=== PATIENT | female | born 1960 | race Caucasian/White ===

== ENCOUNTER 2018-02-19 00:17 | Emergency (ER) | payer OTHER ==
[~2018-02-19] VITALS: Ht 154.9 cm; Wt 62.6 kg
[~2018-02-19 00:17] MED LIST: CARAFATE SU1 G/10 ML PO; CIPRO500 MG PO; FLAGYL500MG PO; IBUPROFEN800 MG PO; INTESTINEX1 CA1 PO; MEDROL4 MG PO; ORPH100T PO; PROTONIX40 MG PO; ULTRACET PO; ZANTAC150 MG PO
== END 2018-02-19 15:33 | disposition home or self-care (01) ==
LOC: ER 00:17
DX: M79.661 Pain in right lower leg (principal)

== ENCOUNTER 2018-06-05 13:03 | Emergency (ER) | payer OTHER ==
[~2018-06-05] VITALS: Ht 154.9 cm; Wt 63.5 kg
[2018-06-05] MEDS ORDERED: KETO10TA2 PO (15:19)
[2018-06-05] MEDS ORDERED: NORFLEX100MG PO (15:19)
== END 2018-06-05 15:43 | disposition home or self-care (01) ==
LOC: ER 13:03
DX: M54.5 Low back pain (principal)

== ENCOUNTER → 2018-10-05 | Emergency (ER) | payer OTHER ==
[~2018-10-05] VITALS: Ht 154.9 cm; Wt 63.5 kg
[~2018-10-05] MED LIST changes: +CELEBREX200MG PO; +INTESTINEX680 M1 PO; +KETO10TA2 PO; +LEVSIN/SL0.125 MG PO; +METRONIDAZOLE500 MG PO; +NORFLEX100MG PO; +PEPCID AC20 MG PO
== END ==
LOC: ER 17:04
DX: R10.32 Left lower quadrant pain (principal)

== ENCOUNTER 2018-12-23 20:02 | Emergency (ER) | payer OTHER ==
[~2018-12-23] VITALS: Ht 154.9 cm; Wt 62.6 kg
[2018-12-24] MEDS ORDERED: METRONIDAZOLE500 MG PO (06:00)
[2018-12-24] MEDS ORDERED: PEPCID AC20 MG PO (06:00)
[2018-12-24] MEDS ORDERED: LEVSIN/SL0.125 MG SL (06:00)
[2018-12-24] MEDS ORDERED: INTESTINEX680 M1 PO (06:00)
[2018-12-24] MEDS ORDERED: CELEBREX200MG PO (06:00)
[2018-12-24] MEDS ORDERED: CIPRO500 MG PO (06:00)
== END 2018-12-24 06:07 | disposition home or self-care (01) ==
LOC: ER 20:02
DX: R10.32 Left lower quadrant pain (principal)

== ENCOUNTER 2019-01-01 14:52 | Emergency (ER) | payer OTHER ==
[~2019-01-01] VITALS: Ht 154.9 cm; Wt 58.1 kg
[~2019-01-01 14:52] MED LIST changes: +LEVSIN/SL0.125 MG SL
== END 2019-01-01 19:19 | disposition home or self-care (01) ==
LOC: ER 14:52
DX: K57.92 Diverticulitis of intestine, part unspecified, without perforation or abscess without bleeding (principal)

== ENCOUNTER 2019-01-04 16:09 | Emergency (ER) | payer OTHER ==
[~2019-01-04] VITALS: Ht 154.9 cm; Wt 57.6 kg
== END 2019-01-04 23:05 | disposition home or self-care (01) ==
LOC: ER 16:09
DX: K57.90 Diverticulosis of intestine, part unspecified, without perforation or abscess without bleeding (principal); K52.9 Noninfective gastroenteritis and colitis, unspecified

== ENCOUNTER 2019-08-06 10:54 | Inpatient (IN) | payer OTHER ==
[~2019-08-06] VITALS: Ht 160 cm; Wt 68.0 kg
== END 2019-08-09 17:29 | disposition home or self-care (01) | DRG 392 ==
LOC: ER 10:54 → SURH 18:41
PROVIDERS: ADMIT Internal Medicine
PROC: BW21Y0Z Computerized Tomography (CT Scan) of Abdomen and Pelvis using Other Contrast, Unenhanced and Enhanced (ICD-10-PCS; principal; 2019-08-06)
DX: K57.32 Diverticulitis of large intestine without perforation or abscess without bleeding (principal); R10.32 Left lower quadrant pain

== ENCOUNTER 2019-10-23 10:30 | Emergency (ER) | payer OTHER ==
[~2019-10-23] VITALS: Ht 154.9 cm; Wt 62.6 kg
== END 2019-10-23 14:16 | disposition home or self-care (01) ==
LOC: ER 10:30
DX: K29.70 Gastritis, unspecified, without bleeding (principal)

== ENCOUNTER 2021-06-01 15:34 | Emergency (ER) | payer OTHER ==
[~2021-06-01] VITALS: Ht 154.9 cm; Wt 58.1 kg
== END 2021-06-01 20:10 | disposition home or self-care (01) ==
LOC: ER 15:34
DX: A02.9 Salmonella infection, unspecified (principal); R11.2 Nausea with vomiting, unspecified

== ENCOUNTER 2022-01-22 21:51 | Emergency (ER) | payer OTHER ==
[~2022-01-22] VITALS: Ht 154.9 cm; Wt 59.0 kg
[2022-01-22] MEDS ORDERED: NEURONTIN800 MG PO (21:56)
== END 2022-01-23 00:05 | disposition home or self-care (01) ==
LOC: ER 21:51
DX: K57.92 Diverticulitis of intestine, part unspecified, without perforation or abscess without bleeding (principal)

== ENCOUNTER 2022-02-03 07:26 | Outpatient (CLI) | payer OTHER ==
[~2022-02-03 07:26] MED LIST changes: +NEURONTIN800 MG PO
== END 2022-02-03 07:39 | disposition home or self-care (01) ==
LOC: SONOGRAMA 07:26
PROVIDERS: ATTEND Podiatrist Foot Surgery
DX: G57.63 Lesion of plantar nerve, bilateral lower limbs (principal)

== ENCOUNTER 2022-02-12 20:33 | Inpatient (IN) | payer OTHER ==
[~2022-02-12] VITALS: Ht 180.3 cm; Wt 58.1 kg
[2022-02-15] MEDS ORDERED: CYCLOBENZAPRINE10 MG (08:10)
[2022-02-15] MEDS ORDERED: MELOXICAM15 MG (08:10)
[2022-02-15] MEDS ORDERED: ZOLPIDEM TARTRA10 MG (08:10)
[2022-02-15] MEDS ORDERED: FAMOTIDINE40 MG (08:10)
[2022-02-15] MEDS ORDERED: METHYLPREDNISOLO4 MG (08:11)
[2022-02-15] MEDS ORDERED: FLUOXETINE HCL40 MG (08:11)
[2022-02-15] MEDS ORDERED: TIZANIDINE HCL4 MG (08:11)
[2022-02-15] MEDS ORDERED: ONDANSETRON HCL8 MG (08:11)
[2022-02-15] MEDS ORDERED: MOMETASONE FURO17 GM (08:11)
[2022-02-15] MEDS ORDERED: BUTALB-ACETAMI1 EAC2 (08:11)
== END 2022-02-15 13:52 | disposition home or self-care (01) | DRG 392 ==
LOC: ER 20:33 → MEDJ 02-13 12:08
PROVIDERS: ADMIT Internal Medicine; ATTEND Internal Medicine
DX: K57.30 Diverticulosis of large intestine without perforation or abscess without bleeding (principal); E87.1 Hypo-osmolality and hyponatremia; R10.32 Left lower quadrant pain; E86.0 Dehydration; K59.09 Other constipation; Z20.822 Contact with and (suspected) exposure to COVID-19

== ENCOUNTER 2023-02-06 14:27 | Emergency (ER) | payer OTHER ==
[~2023-02-06] VITALS: Ht 154.9 cm; Wt 59.0 kg
[~2023-02-06 14:27] MED LIST changes: +BUTALB-ACETAMI1 EAC2; +CYCLOBENZAPRINE10 MG; +FAMOTIDINE40 MG; +FLUOXETINE HCL40 MG; +MELOXICAM15 MG; +METHYLPREDNISOLO4 MG; +MOMETASONE FURO17 GM; +ONDANSETRON HCL8 MG; +TIZANIDINE HCL4 MG; +ZOLPIDEM TARTRA10 MG
== END 2023-02-06 17:56 | disposition home or self-care (01) ==
LOC: ER 14:27
DX: K52.9 Noninfective gastroenteritis and colitis, unspecified (principal)

== ENCOUNTER 2023-02-07 14:21 | Inpatient (IN) | payer OTHER ==
[~2023-02-07] VITALS: Ht 152.4 cm; Wt 58.1 kg
--- NOTE | 2023-02-07 14:56 | NUR ---
SE RECIBE PTE ALERTA Y ORIENTADA X3 PTE REFIERE QUE VINO EN [facility] PTE REFIERE QUE PADECE DE DIVERTICULOS DESDE VIERNES EN LA NOCHE. SE YISEL VITALES Y SE NAN OBSERVACION.
--- NOTE | 2023-02-07 16:27 | NUR ---
PTE FEMENINA EVALUADA POR . SHERIE DOMINGUEZ ORIENTA PTE SOBRE ORDENES DE [place] REFIERE COMPRENDER. COLECTA MUESTRAS DE LABORATORIOS Y CANALIZA VENA BAJO MEDIDAS ASEPTICAS. ADMINISTRA MEDICAMENTOS, BAJO MEDIDAS ASEPTICAS. NOTIFICA A RADIOLOGIA PARA ESTUDIO CT.
== END 2023-02-10 13:50 | disposition home or self-care (01) | DRG 392 ==
LOC: ER 14:21 → MEDI 19:03
PROVIDERS: ADMIT Internal Medicine; ATTEND Internal Medicine
PROC: BW21ZZZ Computerized Tomography (CT Scan) of Abdomen and Pelvis (ICD-10-PCS; principal; 2023-02-07)
DX: K57.32 Diverticulitis of large intestine without perforation or abscess without bleeding (principal); E87.1 Hypo-osmolality and hyponatremia; K52.9 Noninfective gastroenteritis and colitis, unspecified; Z20.822 Contact with and (suspected) exposure to COVID-19

== ENCOUNTER 2023-06-17 08:52 | Emergency (ER) | payer OTHER ==
[~2023-06-17] VITALS: Ht 154.9 cm; Wt 59.0 kg
== END 2023-06-17 12:08 | disposition home or self-care (01) ==
LOC: ER 08:52
DX: B34.8 Other viral infections of unspecified site (principal); Z20.822 Contact with and (suspected) exposure to COVID-19

== ENCOUNTER 2023-07-08 16:45 | Emergency (ER) | payer OTHER ==
[~2023-07-08] VITALS: Ht 154.9 cm; Wt 59.9 kg
== END 2023-07-08 22:07 | disposition home or self-care (01) ==
LOC: ER 16:45
DX: N39.0 Urinary tract infection, site not specified (principal)
CPT/HCPCS: 36415; 96365; 99283; J3490

== ENCOUNTER 2023-07-18 07:24 | Outpatient (CLI) | payer OTHER | END 2023-07-18 07:28 | disposition home or self-care (01) | LOC: RAD 07:24 | DX: R91.8 Other nonspecific abnormal finding of lung field (principal) ==

== ENCOUNTER 2023-08-13 19:20 | Emergency (ER) | payer OTHER ==
[~2023-08-13] VITALS: Ht 162.6 cm; Wt 65.8 kg
== END 2023-08-13 22:37 | disposition home or self-care (01) ==
LOC: ER
PROVIDERS: General Practice
DX: R51.9 Headache, unspecified (principal); Z20.822 Contact with and (suspected) exposure to COVID-19
CPT/HCPCS: 36415; 96365; 99282; J1885; J3490

== ENCOUNTER 2023-09-12 14:11 | Emergency (ER) | payer OTHER ==
[~2023-09-12] VITALS: Ht 162.6 cm; Wt 63.5 kg
[2023-09-12 18:10] LABS: URINE APPEARANCE Clear; URINE BILIRRUBIN Negative (NEGATIVE); URINE BLOOD Negative; URINE COLOR Yellow; URINE GLUCOSE Negative (NEGATIVE); URINE LEUKOCYTE Trace; URINE NITRATE Negative; URINE PROTEIN Negative (NEGATIVE); URINE UROBILINOGEN 0.2 E.U./dl
[2023-09-12 18:13] LABS: URINE BACTERIA 17.6 uL (0.0-1933); URINE EPITHELIAL CELLS 3.2 uL (0.0-38.8); URINE WBC 7.5 uL (0.0-23.2)
[2023-09-12 18:17] LABS: HEMATOCRIT 33.4 % (36.0-45.00); HEMOGLOBIN 10.9 g/dL (12.0-15.00); MEAN CELL VOLUME 90.2 fL (80.00-100.00); MEAN CORPUSCULAR HEMOGLOBIN 29.5 pg (27.00-32.0); MEAN CORPUSCULAR HGB CONC 32.7 g/dl (32.0-36.0); PLATELET COUNT 384 K/uL (150-450); RED CELL DISTRIBUTION WIDTH 12.7 % (11.5-14.5)
[2023-09-12 18:43] LABS: CALCIUM 9.3 mg/dL (8.5-10.1); CREATININE SERUM 0.79 mg/dL (0.55-1.02); GFR 73.74; POTASSIUM 4.22 mEq/L (3.5-5.1)
== END 2023-09-12 20:34 | disposition home or self-care (01) ==
LOC: ER 14:11
PROVIDERS: General Practice
DX: J06.9 Acute upper respiratory infection, unspecified (principal); R07.0 Pain in throat; E87.1 Hypo-osmolality and hyponatremia; Z20.822 Contact with and (suspected) exposure to COVID-19
CPT/HCPCS: 36415; 96365; 96372; 99284; J0696; J3490

== ENCOUNTER 2024-02-16 10:29 | Outpatient (CLI) | payer OTHER | END 2024-02-16 10:30 | disposition home or self-care (01) | LOC: NUCLEAR 10:29 | PROVIDERS: ATTEND Internal Medicine | DX: I87.2 Venous insufficiency (chronic) (peripheral) (principal); I73.9 Peripheral vascular disease, unspecified ==

== ENCOUNTER 2024-02-17 08:15 | Outpatient (CLI) | payer OTHER | END 2024-02-17 08:16 | disposition home or self-care (01) | LOC: NUCLEAR 08:15 | PROVIDERS: ATTEND Internal Medicine | DX: I87.2 Venous insufficiency (chronic) (peripheral) (principal); I73.9 Peripheral vascular disease, unspecified ==

== ENCOUNTER 2024-03-13 08:12 | Inpatient (IN) | payer OTHER ==
[~2024-03-13] VITALS: Ht 154.9 cm; Wt 60.8 kg
[2024-03-13] MEDS ORDERED: FAMOTIDINE/PF 20 MG in 0.9 % SODIUM CHLORIDE 8 ML IV PUSH STA (08:53)
[2024-03-13] MEDS ORDERED: ONDANSETRON HCL 2 MG/ML VIAL IV ONE (09:00)
[2024-03-13] MEDS ORDERED: KETOROLAC TROMETHAMINE 30 MG VIAL IV ONE (09:00)
[2024-03-13] MEDS ORDERED: 0.9 % SODIUM CHLORIDE 1,000 ML IV SCH ×2 (09:00→19:15)
[2024-03-13 09:29] LABS: HEMATOCRIT 37.1 % (36.0-45.00); HEMOGLOBIN 12.9 g/dL (12.0-15.00); MEAN CELL VOLUME 89.5 fL (80.00-100.00); MEAN CORPUSCULAR HEMOGLOBIN 31.2 pg (27.00-32.0); MEAN CORPUSCULAR HGB CONC 34.9 g/dl (32.0-36.0); PLATELET COUNT 386 K/uL (150-450); RED BLOOD COUNT 4.14 M/uL (4.00-6.00); RED CELL DISTRIBUTION WIDTH 12.9 % (11.5-14.5)
[2024-03-13 09:51] LABS: BILIRUBIN TOTAL 0.79 mg/dL (0.3-1.2); BILIRUBIN,CONJUGATED 0.21 mg/dL (0.0-0.2); BILIRUBIN,UNCONJUGATED 0.58 mg/dL (0.0-0.6); CALCIUM 9.9 mg/dL (8.5-10.1); CREATININE SERUM 0.89 mg/dL (0.55-1.02); GFR 64.27; GLOBULINA 4.6 G/DL (2.4-3.5); POTASSIUM 4.04 mEq/L (3.5-5.1); TOTAL PROTEIN 8.6 gm/dL (6.4-8.2)
[2024-03-13 12:14] LABS: PH,URINE 8.5 (5.0-8.0); URINE APPEARANCE Clear; URINE BILIRRUBIN Negative (NEGATIVE); URINE BLOOD Negative; URINE COLOR Yellow; URINE GLUCOSE Negative (NEGATIVE); URINE LEUKOCYTE Negative; URINE NITRATE Negative; URINE PROTEIN Trace (NEGATIVE); URINE UROBILINOGEN 0.2 E.U./dl
[2024-03-13 12:16] LABS: URINE BACTERIA 27.7 uL (0.0-1933); URINE EPITHELIAL CELLS 3.5 uL (0.0-38.8); URINE RBC 41.9 uL (0.0-20.8); URINE WBC 2.9 uL (0.0-23.2)
[2024-03-13] MEDS ORDERED: ACETAMINOPHEN 500 MG GEL..CAP PO ONE (13:30)
[2024-03-13] MEDS ORDERED: PIPERACILLIN/TAZOBACTAM SODIUM 3.375 GM in DEXTROSE 5 % IN WATER 100 ML IV SCH (19:12)
[2024-03-13] MEDS ORDERED: ACETAMINOPHEN 500 MG GEL..CAP PO PRN (19:15)
[2024-03-13] MEDS ORDERED: ONDANSETRON HCL 4 MG in 0.9 % SODIUM CHLORIDE 50 ML IV PRN (19:15)
[2024-03-13 20:21] LABS: INR 1.02; PARTIAL THROMBOPLASTIN TIME 32.4 SECONDS (22.0-34.0); PROTHROMBIN TIME 10.7 SECONDS (9.0-11.5)
[2024-03-13] MEDS ORDERED: MORPHINE SULFATE 4 MG/ML CARTRIDGE IV SCH (21:00)
[2024-03-14] MEDS ORDERED: FAMOTIDINE/PF 20 MG in 0.9 % SODIUM CHLORIDE 8 ML IV PUSH SCH (09:00)
[2024-03-14] MEDS ORDERED: ENOXAPARIN SODIUM 40 MG/0.4 ML SYRINGE SUBCUTANEO SCH (09:00)
[2024-03-15 07:48] LABS: HEMATOCRIT 31.9 % (36.0-45.00); HEMOGLOBIN 10.9 g/dL (12.0-15.00); MEAN CELL VOLUME 89.1 fL (80.00-100.00); MEAN CORPUSCULAR HEMOGLOBIN 30.4 pg (27.00-32.0); MEAN CORPUSCULAR HGB CONC 34.2 g/dl (32.0-36.0); PLATELET COUNT 381 K/uL (150-450); RED BLOOD COUNT 3.58 M/uL (4.00-6.00); RED CELL DISTRIBUTION WIDTH 12.8 % (11.5-14.5)
[2024-03-15 08:39] LABS: ALBUMIN 3.2 gm/dL (3.4-5.0); BILIRUBIN TOTAL 0.61 mg/dL (0.3-1.2); CALCIUM 8.8 mg/dL (8.5-10.1); CREATININE SERUM 0.68 mg/dL (0.55-1.02); GFR 87.67; GLOBULINA 3.4 G/DL (2.4-3.5); MAGNESIUM 2.1 mg/dL (1.8-2.4); PHOSPHOROUS 3.3 mg/dL (2.5-4.9); POTASSIUM 3.88 mEq/L (3.5-5.1); TOTAL PROTEIN 6.6 gm/dL (6.4-8.2)
[2024-03-15 08:40] LABS: C-REACTIVE PROTEIN 10.4 MG/DL (0.00-0.29)
[2024-03-15] MEDS ORDERED: LACTOBACILLUS ACIDOPHILUS 1 CAP CAP PO SCH (09:00)
[2024-03-15] MEDS ORDERED: AMOX-CLAV 875-1 EAC1 PO (15:01)
[2024-03-15] MEDS ORDERED: INTESTINEX680 M1 PO (15:02)
[2024-03-15] MEDS ORDERED: METRONIDAZOLE500 MG PO (15:02)
[2024-03-15] MEDS ORDERED: PEPCID AC20 MG PO (15:03)
== END 2024-03-15 17:44 | disposition home or self-care (01) | DRG 392 ==
LOC: ER 08:13 → MEDJ 19:21
PROVIDERS: General Practice; Internal Medicine Infectious Disease; ADMIT Internal Medicine; ATTEND Internal Medicine
PROC: BW21YZZ Computerized Tomography (CT Scan) of Abdomen and Pelvis using Other Contrast (ICD-10-PCS; principal; 2024-03-13)
DX: K57.32 Diverticulitis of large intestine without perforation or abscess without bleeding (principal); E87.1 Hypo-osmolality and hyponatremia; D72.829 Elevated white blood cell count, unspecified

== ENCOUNTER 2025-09-20 10:31 | Outpatient (CLI) | payer OTHER ==
[~2025-09-20 10:31] MED LIST changes: +AMOX-CLAV 875-1 EAC1 PO
== END 2025-09-20 10:35 | disposition home or self-care (01) ==
LOC: SONOGRAMA 10:31
PROVIDERS: ATTEND Internal Medicine
DX: E04.2 Nontoxic multinodular goiter (principal)

== ENCOUNTER 2025-10-18 11:40 | Outpatient (CLI) | payer OTHER | END 2025-10-18 11:44 | disposition home or self-care (01) | LOC: RAD 11:40 | PROVIDERS: ATTEND Internal Medicine | DX: M54.9 Dorsalgia, unspecified (principal); M54.50 Low back pain, unspecified ==